=== PATIENT | male | born 1950 | race Caucasian/White ===

== ENCOUNTER → 2019-06-01 | Outpatient (CLI) | payer MEDICARE ==
--- NOTE | 2019-06-01 10:31 | KCIC ---
MRI left knee without contrast dated 06/01/2019. No comparison available. CLINICAL INDICATION: Left knee pain. TECHNIQUE: Routine multiplanar multisequence MR imaging performed. FINDINGS: Mild tricompartmental hypertrophic change with small marginal osteophytes. Thinning and surface irregularity of the articular cartilage throughout. No full-thickness osteochondral defect. There is a small joint effusion. Tiny popliteal cyst. Small loose body at the posterior joint space measuring about 6 mm. Anterior cruciate and posterior cruciate ligaments intact. Medial and lateral collateral complexes are intact. Iliotibial band, popliteus tendon and pes anserine complex within normal limits. Quadriceps and patellar tendon are intact. No abnormality of the medial or lateral retinaculum. There is mild edema within the prepatellar and superficial infrapatellar soft tissues, nonspecific. There is a horizontal oblique tear posterior horn and body of medial meniscus with extension to the tibial articular surface. There is also blunting of the free edge of the posterior horn and body. The anterior horn is intact. Lateral meniscus is normal in morphology and signal. IMPRESSION: 1. Horizontal oblique tear posterior horn/body of medial meniscus. 2. Mild tricompartmental degenerative arthrosis and chondromalacia. 3. Small joint effusion and tiny popliteal cyst. There is a small loose body at the posterior joint space. Electronically signed by: Dom Lopez MD (06/01/2019 10:28 AM) [id number]
== END | disposition home or self-care (01) ==
LOC: KCIC MRI 09:16
PROVIDERS: ATTEND Orthopaedic Surgery
DX: S83.242A Other tear of medial meniscus, current injury, left knee, initial encounter (principal); M25.762 Osteophyte, left knee; M25.462 Effusion, left knee; M17.12 Unilateral primary osteoarthritis, left knee; M94.262 Chondromalacia, left knee; M71.22 Synovial cyst of popliteal space [Baker], left knee; X58.XXXA Exposure to other specified factors, initial encounter; Y93.89 Activity, other specified; Y92.89 Other specified places as the place of occurrence of the external cause; Y99.8 Other external cause status
CPT/HCPCS: 73721